=== PATIENT | female | born 1995 | race Caucasian/White ===

== ENCOUNTER → 2020-07-27 08:40 | Outpatient (CLI) | payer OTHER, SELFPAY ==
[2020-07-27 10:36] LABS: COVID19 -Nasal RAPID Negative (Negative)
== END ==
PROVIDERS: Visit Provider Family Medicine Sleep Medicine
DX: Z01.812 Encounter for preprocedural laboratory examination (principal); Z20.822 Contact with and (suspected) exposure to COVID-19
CPT/HCPCS: 87635; C9803

== ENCOUNTER → 2020-07-29 10:56 | Outpatient (CLI) | payer OTHER, SELFPAY ==
[2020-07-29 11:59] LABS: Ur Creatinine Normal (Normal); Ur Specific Gravity Normal (Normal)
[2020-07-29 12:00] LABS: UR Morphine/Opiate cutoff 300 Negative (Negative); Urine Amphetamines Negative (Negative); Urine Barbiturates Negative (Negative); Urine Benzodiazepines Negative (Negative); Urine Cocaine Negative (Negative); Urine MDMA Negative (Negative); Urine Methadone Negative (Negative); Urine Methamphetamines Negative (Negative); Urine Oxycodone Negative (Negative); Urine Phencyclidine Negative (Negative); Urine Tetrahydrocannabinol Negative (Negative); Urine Tricyclic Antidepressant Negative (Negative); Urine pH Normal (Normal)
== END ==
PROVIDERS: Visit Provider Family Medicine Sleep Medicine
DX: G47.00 Insomnia, unspecified (principal); G47.19 Other hypersomnia; G47.30 Sleep apnea, unspecified
CPT/HCPCS: 80305